=== PATIENT | female | born 1980 | race Caucasian/White ===

== ENCOUNTER 2018-10-11 12:56 | Day surgery (SDC) | payer OTHER, SELFPAY ==
[2018-10-11] VITALS (7 sets, daily range): BP systolic 113–132; BP diastolic 65–87; PULSE 76–96; RESP 12–19; TEMP 36.4–36.9; O2SAT 100; BMI 21.2
--- NOTE | 2018-10-11 | PATH_ITS ---
[facility] Accession Number: [id number] . 01 Material submitted: . RECTAL MASS . 02 Diagnosis: Rectum, Mass, Biopsy: Invasive adenocarcinoma, moderately differentiated. Please see comment. MRV/10/12/2018 . 02 Comment: As part of routine quality facilitator, Dr. Kumar also reviewed this case and agrees with the diagnosis. Dr. Siddiqui discussed the results with Dr. Del Cid on 10/12/2018. Mismatch repair IHC will be performed and the results reported as an addendum. . 02 Electronically signed: . Imelda Siddiqui MD, Pathologist NPI- [id number] . 01 Gross description: . Received one formalin-filled container labeled with the patient's name and labeled rectal mass are three 0.2 to 0.4 cm portions of tissue. Entirely submitted in one cassette. ([facility] [place][id number]) /[facility] . 02 Pathologist provided ICD-10: C20 . 02 CPT . 321981, I44997, [id number] Performed at: 01 [facility] [address], [place], [place] [id number] MD Lake Baeza MD Phone: [phone] Performed at: 02 [facility] [address] [place], [place] [id number] MD Imelda Siddiqui MD Phone: [phone]
--- NOTE | 2018-10-11 12:44 | PM.HP.1 ---
History of Present Illness Date Patient Seen: 10/11/18 Chief complaint: [id number] Narrative: The patient is a 38-year-old female was seen in our office on 09/26/2018 for obstipation, rectal bleeding, and abdominal pain. Please refer to that office note for further details. She has had no changes in her clinical condition since that office visit. Meds Home Medications Medication Instructions Recorded Confirmed Type Citrucel 1,000 mg PO BID 10/11/18 10/11/18 History Culturelle Probiotics 1 cap PO DAILY 10/11/18 10/11/18 History Linzess 145 mcg PO DAILY 10/11/18 10/11/18 History Multi Vitamin 1 tab PO DAILY 10/11/18 10/11/18 History TYLER (28) 1 tab PO DAILY 10/11/18 10/11/18 History alprazolam 0.5 mg PO PRN 10/11/18 History docusate sodium 240 mg PO DAILY 10/11/18 10/11/18 History senna 17.2 mg PO BID 10/11/18 10/11/18 History Allergies Allergy/AdvReac Type Severity Reaction Status Date / Time No Known Drug Allergies Allergy Verified 10/11/18 12:29 Exam Narrative Exam Narrative: General: Patient is well developed, not in apparent distress Cardiovascular: Regular rate and rhythm, no murmurs, rubs, or gallops; no evidence of edema; no palpable abdominal aortic aneurysm Gastrointestinal: Normoactive bowel sounds, soft, nontender, nondistended, no rebound tenderness, no hepatosplenomegaly, no evidence of hernia Assessment & Plan Assessment Narrative: 30-year-old female with history of constipation and abdominal pain as well as rectal bleeding who is here for evaluation by means of colonoscopy Regarding the procedure(s), the risks and potential complications, benefits, and alternatives (including not doing the procedure) were discussed with the patient. The risks include but are not limited to bleeding, splenic injury, infection, perforation which may require surgical intervention, missed lesions, and adverse reactions to sedative medicines. After a question and answer period, the patient agreed to proceed with the procedure(s) and gives informed consent.
[2018-10-11] MEDS: SODIUM CHLORIDE 0.9% 1,000 ML 70 ML IV (13:25)
[2018-10-11] MEDS: fentaNYL 250 MCG/5 ML INJ IV (13:38)
[2018-10-11] MEDS: MIDAZOLAM 5 MG/5 ML VIAL IV (13:39)
--- NOTE | 2018-10-11 13:58 | P.OP.ENDO_ITS ---
Operative Date/Time/Diagnoses Date of procedure: 10/11/18 Procedure Notes Procedure in detail: Surgeon: Jonathan Del Cid MD Procedure: Colonoscopy with biopsy Preoperative diagnosis: Constipation, rectal bleeding Postoperative diagnosis: Partial early obstructing rectal mass, grade 1 i nternal hemorrhoids Medications: Conscious sedation using 8 mg IV of Midazolam and 150 mcg IV of Fentanyl Preanesthesia Assessment An H and P was performed/updated and the Px?s ASA class is 1. The procedure was discussed in detail with the patient. The potential risks and complications including infection, bleeding, missed lesions, perforation, need for surgery in case of perforation, prolonged hospital stay, and were explained. A brief question and answer period was allotted and once all questions were answered, informed consent was obtained. The patient was brought back to the procedure room and placed on standard monitoring. The patient?s vital signs were monitored continuously throughout the entire procedure. Prior to starting, a timeout was performed to confirm the patient?s identity, allergies, medications, and procedure. Procedure in detail The patient was placed in left lateral decubitus position and once adequate sedation was obtained a SALLY was performed. The digital rectal examination revealed a palpable mass in the rectum. The tip of the colonoscope was placed in the anal canal and advanced to 5 cm with visualization of a partially obstructing circumferential mass. The colonoscope was unable to pass this area due to a luminal size around 10-11 mm. Biopsies were taken of the mass with minimal bleeding. The colonoscope was then exchanged for an upper endoscope. The upper endoscope was able to traverse the rectal mass which was found to be 5 cm in length. This ranged from 5-10 cm from the anal verge. The endoscope was then passed without difficulty all the way to the cecum which was identified by the appendiceal orifice and the ileocecal valve. Careful examination of all aragon of the colon was performed with irrigation of any residual stool. There were no mucosal abnormalities in the right colon, transverse colon, descending colon or sigmoid colon. Retroflexion was performed in the rectum which revealed grade 1 internal hemorrh oids The patient tolerated the procedure well and will be brought back to the recovery area to be discharged once criteria are met. The prep was judged to be good/excellent and adequate to identify polyps less than 5 mm. The withdrawal time was 7 min. The total physician intraservice time was 25 min. Complications There were no complications and estimated blood loss was minimal. Recommendations: I discussed the Px's case with Dr. Turcios ([facility]) who had recommended referring the patient to a colorectal surgeon in [place]. As such, I will refer her to Dr. Negrita Hernandez at [facility] referral Resume previous diet Continue outPx medications Follow up pathology results Repeat colonoscopy in 1 year An emergency contact number was given to the patient for any complications related to the procedure
--- NOTE | 2018-10-11 14:17 | PM.DS.1 ---
History of Present Illness Chief complaint: [id number] Narrative: The patient is a 38-year-old female was seen in our office on 09/26/2018 for obstipation, rectal bleeding, and abdominal pain. Please refer to that office note for further details. She has had no changes in her clinical condition since that office visit. Discharge Providers Primary care physician: Jared Washington PA-C Discharge provider: Jonathan Del Cid MD Discharge Date: 10/11/18 Exam Vital Signs (past 8 hours): - 10/11/18 13:07 10/11/18 14:00 10/11/18 14:05 Temperature 98.4 F 97.5 F L Pulse Rate 86 96 H 82 Respiratory Rate 14 19 12 Blood Pressure 123/71 124/74 120/72 Pulse Oximetry 100 100 100 10/11/18 14:10 Temperature Pulse Rate 83 Respiratory Rate 14 Blood Pressure 113/65 Pulse Oximetry 100 Oxygen Delivery Method Room Air Narrative Exam Narrative: General: Patient is well developed, not in apparent distress Cardiovascular: Regular rate and rhythm, no murmurs, rubs, or gallops; no evidence of edema; no palpable abdominal aortic aneurysm Gastrointestinal: Normoactive bowel sounds, soft, nontender, nondistended, no rebound tenderness, no hepatosplenomegaly, no evidence of hernia Discharge Plan Discharge Plan Patient Disposition: Home Discharge comment: You will be discharged with a copy of your procedure report Discharge Med Rec/Prescriptions Prescriptions: Continued Citrucel 1,000 mg PO BID RF: 0 Culturelle Probiotics 1 cap PO DAILY RF: 0 Linzess 145 mcg PO DAILY RF: 0 Multi Vitamin 1 tab PO DAILY RF: 0 TYLER (28) 1 tab PO DAILY RF: 0 alprazolam 0.5 mg PO PRN (Reason: Anxiety) RF: 0 docusate sodium 240 mg PO DAILY RF: 0 senna 17.2 mg PO BID RF: 0 drospirenone-ethinyl estradiol [TYLER (28)] 3-0.02 mg Tablet 1 tab PO DAILY RF: 0 Follow up/Referrals: Jared Washington PA-C [Primary Care Provider] - Discharge Orders: Discharge (Order); Ordered 10/11/18 Ordered By: Jonathan Del Cid Provider Discharge Instructions Diet: Diet as Tolerated Visit Report/Discharge Packet Stand Alone Forms: Colonoscopy Result: [facility], Surgery Discharge Discharge Data Primary Care Provider: Jared Washington Attending Provider: Jonathan Del Cid
--- NOTE | 2018-10-30 14:30 | ONC.SCHED ---
received auth from for patient. I called patient to scheduled she told me she already had an appointment in [facility] and didn't need to come see us. I wished her well and told her if she decided she wanted to come to [place] to let them know and they could help facilitate that transition.
== END 2018-10-11 15:25 | disposition home or self-care (01) ==
PROVIDERS: PCP Physician Assistant; Visit Provider Internal Medicine Gastroenterology
PROC: 0DJD8ZZ Inspection of Lower Intestinal Tract, Via Natural or Artificial Opening Endoscopic (ICD-10-PCS; CPT 45378; principal; 2018-10-11 14:00)
DX: C20 Malignant neoplasm of rectum (principal); K64.0 First degree hemorrhoids
CPT/HCPCS: 45380; 88305; 88341; 88342; J2250; J3010

== ENCOUNTER → 2020-02-11 08:38 | Outpatient (CLI) | payer OTHER, SELFPAY ==
[2020-02-12 15:40] LABS: COVID19 Sendout NOT DETECTED (Not Detect)
== END ==
PROVIDERS: PCP Physician Assistant; Visit Provider Registered Nurse
DX: Z11.59 Encounter for screening for other viral diseases (principal)
CPT/HCPCS: 87635

== ENCOUNTER 2020-02-14 06:46 | Day surgery (SDC) | payer OTHER, SELFPAY ==
--- NOTE | 2020-02-14 | PATH_ITS ---
[facility] Accession Number: [id number] . 01 Material submitted: . PART A: cervix - CERVICAL OS PART B: rectum - BIOPSY AT 15 CM . 01 Clinical history: . POST RADIATION FOR RECTAL CANCER . 02 Diagnosis: A. Cervical Os, Biopsy: Inflamed granulation tissue and a polypoid fragment, favor lower uterine segment origin; negative for dysplasia or malignancy. . B. Biopsy at 15 cm: Superficial portion of colorectal mucosa with a benign lymphoid aggregate. Additional levels through the block are non-contributory. MRV 02/18/2020 1238 Local . 02 Electronically signed: . Gloria Kumar MD, Pathologist NPI- [id number] . 01 Gross description: . Part A: CERVICAL OS: Received in formalin are minute fragments of mucoid and hemorrhagic material measuring 0.1 x 0.1 x 0.1 cm in aggregate. Submitted in toto in 1 cassette. Part B: BIOPSY AT 15 CM: Received in formalin are 2 fragment(s) of park, soft tissue measuring 0.1 x 0.1 x 0.1 cm to 0.2 x 0.2 x 0.2 cm submitted entirely in 1 cassette(s) /MAUR[facility] 02/14/20202052 Local . 02 Pathologist provided ICD-10: C20 . 02 CPT . 614153, 115556 Performed at: 01 [facility] [address], [place], [place] [id number] MD Lake Baeza MD Phone: [phone] Performed at: 02 [facility] [address] [place], [place] [id number] MD Imelda Siddiqui MD Phone: [phone]
[2020-02-14 07:09] VITALS: BMI 24.7
[2020-02-14 07:14] VITALS: BP 112/68; PULSE 91; RESP 16; TEMP 36.7; O2SAT 100
[2020-02-14] MEDS: LACTATED RINGERS 1,000 ML 42 ML IV (07:48)
[2020-02-14] MEDS: MIDAZOLAM 5 MG/5 ML VIAL IV (07:55)
[2020-02-14] MEDS: fentaNYL 250 MCG/5 ML INJ IV (07:55)
--- NOTE | 2020-02-14 07:57 | PM.PREOP ---
Pre-operative Note COVID-19 COVID-19 status: Negative Result date/Date tested (Pos, Neg/Pending): 02/11/20 Interval Note History & Physical reviewed/Exam performed by Physician: Yes Changes to H&P: No ASA Class (for procedural sedation): II
[2020-02-14 08:25] VITALS: BP 133/85; PULSE 105; RESP 13; TEMP 36.6; O2SAT 100
--- NOTE | 2020-02-14 08:25 | PM.OP.ENDO ---
Operative Date/Time/Diagnoses Date of procedure: 02/14/20 Time of procedure: 08:25 Pre-op diagnosis: Post rectal resection after radiation and chemo for rectal cancer. Post-op diagnosis: same (Abnormal cervical os. Rare diverticulum. Flat lesion at 15 cm (probably traumatic rather than neoplastic but biopsies taken)) Procedure & Clinicians Study performed: Colonoscopy with cold biopsy Same procedure as scheduled: Yes Indications: Cancer surveillance Surgeon: Edu Moreira Procedure Notes SCOAP/Timeout: Perform Procedure in detail: The patient was placed in the left lateral decubitus position and underwent IV sedation directed by the surgeon consisting of fentanyl and Versed. Digital exam was remarkable for a rather tight anus that was tender with an attempt to insert a finger. I applied topical lidocaine to her anal verge. The opening was still quite tight and as I inserted the scope it must have slipped off her anus and was inserted into the vagina. Once I realized wire was I noted nodularity at the cervical os and biopsied it. I then removed the scope cleaned and inserted into the anus.. The scope was inserted and advanced into the sigmoid, descending, transverse, and ascending colon. It appeared very little if any of the sigmoid remained.. The cecum was reached identified by the ileocecal valve and the appendiceal opening. The ileocecal valve was clearly seen but I could not cannulate it. The scope was gradually brought out. No Polyps were found. A rare diverticulum was noted. One was in the cecum. The other in the sigmoid/descending colon. There was a flat reddened area at 15 cm from the anal verge which I chose to biopsy to be certain it was not a flat new polyp. I suspected was either scar or trauma from the scope as I advanced it through the colon. The scope ultimately was brought into the residual rectum. The appearance was remarkable for a staple that was visualized. Having very little room to work with I chose not to attempt to retroflex but rather slowly brought the scope through the anal verge which appeared to be normal. The scope was removed and the patient tolerated the procedure well. The prep was excellent Scope withdrawal time: 7 minutes Sedation minutes: 26 Findings: diverticulosis (Repair) and other findings (Possible polyp. Nodule lesion of the cervix.) Specimen(s): other (Flat rectal lesion and cervical os) Complications: none Post-procedure Recommendations: Colonscopy in 1 year Plan for aftercare: Will follow up with pathology report to the patient Follow up: as needed Disposition: PACU
[2020-02-14 08:30] VITALS: BP 123/72; PULSE 100; RESP 13; O2SAT 100
[2020-02-14 08:35] VITALS: BP 134/71; PULSE 106; RESP 14; O2SAT 100
[2020-02-14 08:39] VITALS: BP 126/76; PULSE 81; RESP 12; TEMP 36.6; O2SAT 99
[2020-02-14 09:10] VITALS: BP 124/76; PULSE 83; RESP 16; TEMP 36.7; O2SAT 100
== END 2020-02-14 09:35 | disposition home or self-care (01) ==
PROVIDERS: PCP Physician Assistant; Referring Provider Physician Assistant; Visit Provider Specialist
PROC: 0DJD8ZZ Inspection of Lower Intestinal Tract, Via Natural or Artificial Opening Endoscopic (ICD-10-PCS; CPT 45378; principal; 2020-02-14 07:45)
DX: Z85.048 Personal history of other malignant neoplasm of rectum, rectosigmoid junction, and anus (principal); K57.30 Diverticulosis of large intestine without perforation or abscess without bleeding; N84.1 Polyp of cervix uteri
CPT/HCPCS: 45380; 57500; 99152; J2250; J3010

== ENCOUNTER → 2020-06-27 10:19 | Outpatient (CLI) | payer OTHER, SELFPAY ==
[2020-06-30 03:28] LABS: COVID19 Sendout Not Detected (Not Detect)
== END ==
PROVIDERS: PCP Physician Assistant; Visit Provider Physician Assistant
DX: Z11.59 Encounter for screening for other viral diseases (principal)
CPT/HCPCS: 87635

== ENCOUNTER → 2020-07-11 08:36 | Outpatient (CLI) | payer OTHER, SELFPAY ==
[2020-07-14 07:18] LABS: COVID19 Sendout Not Detected (Not Detect)
== END ==
PROVIDERS: PCP Physician Assistant; Visit Provider Physician Assistant
DX: Z11.59 Encounter for screening for other viral diseases (principal)
CPT/HCPCS: 87635

== ENCOUNTER 2020-07-14 06:31 | Day surgery (SDC) | payer OTHER, SELFPAY ==
[2020-07-07 15:02] VITALS: BMI 26.4
[2020-07-14] VITALS (8 sets, daily range): BP systolic 116–135; BP diastolic 69–81; PULSE 64–91; RESP 8–20; TEMP 35.9–36.3; O2SAT 10–99; BMI 26.4
[2020-07-14] MEDS: LACTATED RINGERS 1,000 ML 42 ML IV (07:20)
--- NOTE | 2020-07-14 07:23 | PM.HP.1 ---
History of Present Illness History of Present Illness Date Patient Seen: 07/14/20 Time Patient Seen: 07:24 Chief complaint: SDC Narrative: The patient is a woman here for removal of a Port-A-Cath. She has been undergoing treatment for rectal cancer. They completed use. Patient History Medical History Neuropathy (Acute) Rectal cancer (Acute) Small bowel obstruction (Acute 01/2020) Surgical History History of section (Acute 11/14/14) History of mandibular surgery (Acute 06/2010) History of surgery (Acute 11/2000) Status post colon resection (Acute 02/23/19) Family & Social History Social History: household members spouse,children Tobacco & Substance use: Smoking Status Never smoker alcohol intake current Substance Use Type does not use Meds Home Medications and Allergies Home Medications Medication Instructions Recorded Confirmed Type alprazolam 0.5 mg PO BID PRN #0 10/11/18 07/14/20 History duloxetine 60 mg PO DAILY 02/14/20 07/14/20 History mirtazapine 15 mg PO DAILY 02/14/20 07/14/20 History Allergies Allergy/AdvReac Type Severity Reaction Status Date / Time No Known Drug Allergies Allergy Verified 07/14/20 07:15 Review of Systems Review of Systems ROS: Yes All systems reviewed with the patient and are negative except as otherwise documented Exam Vital Signs (past 8 hours): - 07/14/20 07:16 Temperature 96.9 F L Pulse Rate 73 Respiratory Rate 20 Blood Pressure 120/72 Pulse Oximetry 16 L Oxygen Delivery Method Room Air Oxygen Flow Rate 100 Narrative Exam Narrative: Alert and oriented. Lungs are clear to auscultation. No rales or rhonchi. Heart regular rate and rhythm no murmur gallop. Port is in the right infraclavicular fossa. Skin over it is normal in appearance without rash. Assessment & Plan Assessment & Plan narrative: Patient for removal of Port-A-Cath. Operation discussed. Possibility of a divot discussed her. All questions were answered and she appears to understand wishes to proceed
--- NOTE | 2020-07-14 07:25 | PM.PREOP ---
Pre-operative Note COVID-19 COVID-19 status: Negative Result date/Date tested (Pos, Neg/Pending): 07/11/20 Interval Note History & Physical reviewed/Exam performed by Physician: Yes Changes to H&P: No
[2020-07-14] MEDS: CEFAZOLIN 2 GM/100 ML FROZ.PIGGY IV (07:45)
--- NOTE | 2020-07-14 08:00 | SUR.OPER ---
Supine on padded OR bed, head on pillow, arms secured on padded arm boards at <90 degrees abduction, legs uncrossed, safety belt at thigh, tape over blanket over lower legs.
[2020-07-14] MEDS: BUPIVACAINE 0.5% (PF) VIAL 30 ML INJ (08:05)
--- NOTE | 2020-07-14 08:29 | PM.OP.1 ---
Operative Date/Time/Diagnoses Date of procedure: 07/14/20 Time of procedure: 08:29 Pre-op diagnosis: History of rectal cancer post treatment. Has a Port-A-Cath. Post-op diagnosis: same Procedure & Clinicians Procedure: Removal of Port-A-Cath Same procedure as scheduled: Yes Indications: Port removal Surgeon: Edu Moreira Click Yes if Unassisted: Yes Anesthesia Type: General Operative Notes Findings: Port removed intact Closure Type: primary Specimen(s): none sent Prosthetic devices, grafts, tissues, transplants, or devices: None Estimated Blood Loss (mL): 5 Blood products transfused: none Procedure in detail: Patient was placed supine on the operating table and underwent general LMA anesthesia. She was prepped and draped in the usual fashion. Local anesthetic was infiltrated around the port. Incision is made through the old scar and carried down to the port. The port was from surrounding structures and pulled out of the pocket. 3-0 Vicryl was placed around the catheter with a suture. When the catheter was removed the suture was tied down sealing off the tunnel. Subcu was closed with interrupted 3 0 Vicryl. The skin was closed running 4-0 Vicryl subcuticular stitch and Steri-Strips. Dressing was applied. Patient tolerated the procedure well. Complications: none Post-operative Condition: stable Disposition: PACU
--- NOTE | 2020-07-14 08:38 | SUR.PHASEI ---
0822 late entry To PACU, awake, very drowsy, declined PO intake, denied pain/nausea 0839 aroused spontaneously, states I'm so happy
--- NOTE | 2020-07-14 08:47 | SUR.PHASEI ---
VVO obtained from surgeon for PO med. Drinking water, tolerating well.
[2020-07-14] MEDS: HYDROCODONE/ACET 5/325 TABLET 1 TAB PO (08:58)
== END 2020-07-14 09:24 | disposition home or self-care (01) ==
PROVIDERS: Referring Provider Specialist; Visit Provider Specialist
PROC: (CPT 36590; principal; 2020-07-14 07:45)
DX: Z45.2 Encounter for adjustment and management of vascular access device (principal); Z85.048 Personal history of other malignant neoplasm of rectum, rectosigmoid junction, and anus
CPT/HCPCS: 36590; J0690; J1100; J2405; J2704; J3010

== ENCOUNTER → 2024-07-31 10:48 | Outpatient (CLI) | payer SELFPAY | DX: Z02.1 Encounter for pre-employment examination (principal) | CPT/HCPCS: 36415; 86480 ==